=== PATIENT | female | born 1995 | race Caucasian/White ===

== ENCOUNTER 2018-10-26 14:35 | Inpatient (IN) | payer BC, MEDICAID, SELFPAY ==
[2016-01-26 04:40] VITALS: BMI 32.9
[2018-10-26] MEDS: Lactated Ringers 1,000 ML 50 ML IV (15:00)
[2018-10-26 15:32] LABS: Hematocrit 37.4 % (37-47); Hemoglobin 12.7 g/dl (12.0-15.0); Mean Corpuscular Hgb 31.4 pg (27.0-32.0); Mean Corpuscular Volume 92.6 fL (81-99); Red Blood Count 4.04 M/mm3 (4.2-5.4); White Blood Count 11.7 K/mm3 (4.4-11.0)
[2018-10-26 15:33] LABS: Mean Platelet Vol. 10.2 fl (6.2-12.0); Platelet Count 170 K/mm3 (150-450); RBC Distribution Width CV 13.5 % (11.6-14.6); RBC Distribution Width SD 45.3 fl (35.1-43.9)
[2018-10-26 16:02] LABS: Scan Indicated on CBC? Y/N NO
[2018-10-26] MEDS: Oxytocin 30 units/NS 500 ml 30 UNITS/500 ML IV.SOLN IV (16:27)
--- NOTE | 2018-10-26 20:15 | HP.PCM_ITS ---
- Problem List (1) Term Status: Acute (2) pruritus Status: Acute History Date of Admission: 01/24/16 - L&D triage Final YESSENIA: 11/09/18 Final YESSENIA Source: [place] <20 weeks Gestational age: 38 Weeks and 0 Days History of this : This is a 22 year-old, G 2, P 1, at 38 weeks gestational age who presented to the office today with extreme pruritis of hands, feet, and head. Otherwise no ctx, vb, lof. Good FM. No hx of cholestasis in . Surgical History: Surgical History (Last Updated 10/26/18 @ 20:13 by Sheron Wright DO) Hx of tonsillectomy Z90.89 Allergies No Known Allergies Allergy (Verified 10/26/18 14:56) Home Medications: Home Medications Vits [Prenatabs FA ] 1 tab PO DAILY 12/12/15 Ferrous Sulfate [Iron Supplement] 325 mg PO DAILY 01/23/16 Smoking Status: Former smoker Number of Fetus(es): 1 Heart Tracin/mod gracy/+accels/no decels TOCO Analysis: Quiet History Past Pregnancies: Past Pregnancies Delivery Date Name GA/Weeks Outcome Route Weight Gender Labor Length Anesthesia Delivery Location Provider FOB Term Labs: GBS neg, 1 hr GTT 122, UDS neg, GC/CT neg, Syphilis NR, RI, Hep B neg, HIV NR, Rh positive, antibody screen neg Expected Delivery Method: Spontaneous Vaginal Review of Systems Gynecological: Reports: - - N ctx, vb, lof. Good FM Skin: Reports: - - +Pruritis of hands, feet, head Physical Exam General: Alert, No apparent distress HEENT: Atraumatic Lungs: - - No increased resp effort Abdomen: Soft, Non Tender, Gravid Extremities:: No edema Neurological: Neuro grossly intact Estimated gestational size: Appropriate for gestational size Presentation: Cephalic Cervix Dilation (cm): 3.5 - per junior staff accountant in office Assessment/Plan All Active Problems Term (Acute) pruritus (Acute) This is a 22 year-old, G 2, P 1, at 38 weeks gestational age who presented to the office with extreme pruritis of hands, feet, and head. - Admit to L&D for IOL for presumed cholestasis of given that bile acids will take time to return - GBS negative - Start Pitocin - Epidural prn - Routine intrapartum care
[2018-10-27] MEDS: fentaNYL-bupivacaine (epidural) 100 ML BAG EPIDURAL (00:45)
[2018-10-27] MEDS: Lactated Ringers 1,000 ML 50 ML IV (00:50)
[2018-10-27] MEDS: Oxytocin 30 units/NS 500 ml 30 UNITS/500 ML IV.SOLN 334 UNITS IV (02:55)
--- NOTE | 2018-10-27 03:07 | PCM.OB.VAG ---
- Problem List (1) Term Status: Acute (2) pruritus Status: Acute Vaginal Delivery Maternal Presentation: Medically Indicated Induction Method of Induction: Pitocin Medical Reason for Induction: - - Suspected cholestasis of Amniotic Membrane Rupture Type: Spontaneous Amniotic Fluid Description: Clear Final YESSENIA: 11/09/18 Gestational age: 38 Weeks and 1 Days Date of Procedure: 10/27/18 Pre-Operative Diagnosis: Term gestation, suspected cholestasis of Post-Operative Diagnosis: As above Surgery/ Procedure Performed: Spontaneous Vaginal Delivery Type of Anesthesia: Epidural Description of Procedure: Pt complete and pushing. Head delivered occiput anterior position. Anterior shoulder, posterior shoulder, followed by body were delivered without force or delay. Viable male was placed on maternal abdomen. Cord was clamped and cut after 60 sec delay by the father the baby. Placenta was delivered with fundal massage and noted to be intact with a three-vessel cord. Uterus was explored x2 with removal of scant amounts of membranes. Fundus firm bleeding hemostatic. No vaginal or perineal lacerations noted. EBL 200. Presentation: Vertex Placental Delivery Description: Expressed Cord Vessel Description: 3 Vessels Cord Entanglement: None Estimated Blood Loss: 200 Infant A gender: Male (1 minute): 9 (5 minute): 9 Episiotomy Description: None Laceration: None Medications given after delivery: IV Pitocin
[2018-10-27] MEDS: Oxytocin 30 units/NS 500 ml 30 UNITS/500 ML IV.SOLN 167 UNITS IV (03:30)
[2018-10-27] MEDS: Ibuprofen 600 MG Tablet PO ×3 (05:43→22:15)
[2018-10-27 08:15] VITALS: BP 117/71; PULSE 72; RESP 18; TEMP 36.5
[2018-10-27] MEDS: Acetaminophen 500 MG Tablet 1000 MG PO ×2 (08:18→16:32)
[2018-10-27] MEDS: Senna/Docusate Sodium 1 Tablet PO (10:51)
[2018-10-27 14:00] VITALS: BP 108/71; PULSE 85; RESP 20; TEMP 36.5; O2SAT 98
[2018-10-27 16:37] VITALS: BP 116/68; PULSE 78; RESP 20; TEMP 36.5; O2SAT 98
[2018-10-27 19:55] VITALS: BP 111/67; PULSE 77; RESP 16; TEMP 36.8; O2SAT 98
[2018-10-28 00:15] VITALS: BP 114/61; PULSE 70; RESP 16; TEMP 36.7; O2SAT 100
[2018-10-28 04:15] VITALS: BP 110/69; PULSE 68; RESP 16; TEMP 36.1; O2SAT 100
[2018-10-28 08:21] VITALS: BP 112/71; PULSE 76; RESP 15; TEMP 36.4; O2SAT 99
--- NOTE | 2018-10-28 08:22 | DCINST_ITS ---
Discharge Diet: No Restrictions Discharge Activity: May Drive, May Shower May resume sexual activity in: 4-6 weeks Weight Bearing Status: Weight bearing as tolerated Additional Instructions: If you experience any of the following, contact your healthcare provider. * Bleeding that soaks a pad every hour for 2 hours * Fever 100.4 or higher * Unrelieved incision or abdominal pain * Swelling, redness, discharge or bleeding from your incision or episiotomy site * Your incision begins to separate * Problems urinating (including inability to urinate or burning while urinating). * Visual changes * Severe headache * Flu-like symptoms * Pain or redness in one of both of your breasts * Pain, warmth, tenderness or swelling in your legs, especially the calf area * Frequent nausea and vomiting * Symptoms of depression or anxiety If you experience any of the following, call 911 or go to the nearest Emergency Room. * Chest pain * Problems breathing * Seizure activity * Partial or complete paralysis of a body part, slurred speech, weakness or drooping of the face, or a sudden inability to walk or hold your balance Allergies/Adverse Reactions: Allergies No Known Allergies Allergy (Verified 10/26/18 14:56) Medications to take at Discharge Vits [Prenatabs FA ] 1 tab PO DAILY 12/12/15 Primary Care Physician: Kraig Lopes MD [Primary Care Provider] - Test Results: Test results from this visit will be discussed in further detail at your follow- up appointment, if applicable.
--- NOTE | 2018-10-28 08:22 | PCM.DCVAG ---
Discharge Diet: No Restrictions Discharge Activity: May Drive, May Shower May resume sexual activity in: 4-6 weeks Weight Bearing Status: Weight bearing as tolerated Additional Instructions: If you experience any of the following, contact your healthcare provider. Bleeding that soaks a pad every hour for 2 hours Fever 100.4 or higher Unrelieved incision or abdominal pain Swelling, redness, discharge or bleeding from your incision or episiotomy site Your incision begins to separate Problems urinating (including inability to urinate or burning while urinating). Visual changes Severe headache Flu-like symptoms Pain or redness in one of both of your breasts Pain, warmth, tenderness or swelling in your legs, especially the calf area Frequent nausea and vomiting Symptoms of depression or anxiety If you experience any of the following, call 911 or go to the nearest Emergency Room. Chest pain Problems breathing Seizure activity Partial or complete paralysis of a body part, slurred speech, weakness or drooping of the face, or a sudden inability to walk or hold your balance Allergies/Adverse Reactions: Allergies No Known Allergies Allergy (Verified 10/26/18 14:56) Medications to take at Discharge Vits [Prenatabs FA ] 1 tab PO DAILY 12/12/15 Primary Care Physician: Kraig Lopes MD [Primary Care Provider] - Test Results: Test results from this visit will be discussed in further detail at your follow-up appointment, if applicable.
--- NOTE | 2018-10-28 08:23 | PCM.PN.OB ---
Patient Problems: Active and Suspected Problems Term (Acute) pruritus (Acute) Subjective: No complaints - Physical Exam General: Alert, Oriented x3 Abdomen: Soft, Non Tender, Non-Distended - ff mid & below umb Extremities: No Calf Tenderness Vital Signs Temp Pulse Resp BP Pulse Ox 97.6 F L 76 15 112/71 99 10/28/18 08:21 10/28/18 08:21 10/28/18 08:21 10/28/18 08:21 10/28/18 08:21 Oxygen Delivery Method Room Air Weight: 169 lb 12.095 oz Body Mass Index (BMI) 30.0 Intake and Output for Last 24 Hours 10/26/18 10/27/18 10/28/18 23:59 23:59 23:59 Intake Total 120 / 120 1500 / 1500 Output Total 600 / 600 850 / 850 Balance -480 / -480 650 / 650 Medical Necessity - Tobacco Use Smoking Status: Former smoker Assessment/Plan All Active Problems Term (Acute) pruritus (Acute) PPD#1 Routine care D/c home later today per patient request
[2018-10-28] MEDS: Ibuprofen 600 MG Tablet PO (11:56)
== END 2018-10-28 13:40 | disposition home or self-care (01) | DRG 807 ==
PROVIDERS: Admitting Provider Obstetrics & Gynecology; Family Provider Family Medicine; PCP Family Medicine; Referring Provider Obstetrics & Gynecology; Visit Provider Obstetrics & Gynecology
DX: O26.893 Other specified pregnancy related conditions, third trimester (principal); Z37.0 Single live birth; L29.8 Other pruritus; Z3A.38 38 weeks gestation of pregnancy; Z87.891 Personal history of nicotine dependence
CPT/HCPCS: 59025; 59050; 85027; 86850; 86900; 99218; J7120; G0378

== ENCOUNTER → 2025-04-25 | Outpatient (CLI) | payer MEDICAID, SELFPAY ==
[2025-04-25 17:34] LABS: HIV Nonreactive (Nonreactive); Hepatitis B Surface Antigen Nonreactive (Nonreactive); Syphilis Antibodies Nonreactive (Nonreactive)
[2025-04-29 20:08] LABS: HCV Quant. RNA PCR HCV Not Detected IU/mL (.)
[2025-04-29 20:08] LABS: Chlamydia By Nucleic Acid AMP Negative (Negative); Gonococcus By Nucleic Acid AMP Negative (Negative)
[2025-05-02 19:08] LABS: HPV APTIMA, High Risk Negative (Negative)
== END | disposition home or self-care (01) ==
PROVIDERS: PCP Family Medicine; Referring Provider Advanced Practice Midwife; Visit Provider Advanced Practice Midwife
DX: Z11.3 Encounter for screening for infections with a predominantly sexual mode of transmission (principal)
CPT/HCPCS: 36415; 86695; 86696; 86703; 86780; 87340; 87491; 87522; 87591; 87624; 88175; G0145